=== PATIENT | female | born 1945 | race Caucasian/White ===

== ENCOUNTER → 2016-07-03 | Outpatient (CLI) | payer MEDICARE, BC ==
[~2016-07-03] MED LIST: LOSARTAN PO; OMEPRAZOLE PO; PREMARIN PO; VENL150C PO
--- NOTE | 2016-07-03 17:51 | RADRPT ---
PROCEDURE: Left knee radiographs. CLINICAL INDICATION: Left knee pain. TECHNIQUE: Four views. Weight bearing. Frontal, lateral, oblique, and patellar view. COMPARISON: 12/10/2014. FINDINGS: There is no fracture or dislocation. The soft tissues are normal. There are degenerative changes with osteophytes arising from all 3 joint compartment margins. There is patellofemoral joint compartment narrowing, subarticular sclerosis, and deformity. There is no lytic or blastic lesion. There is no radiopaque foreign body. IMPRESSION: 1. 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 RPTAT: QQ .Laz Klein MD, MD Date Time Electronically viewed and signed by .Laz Klein MD, on 07/03/2016 17:50 .R/
== END | disposition home or self-care (01) ==
LOC: HKI 13:58
PROVIDERS: ATTEND Orthopaedic Surgery
DX: M25.561 Pain in right knee (principal); Z96.651 Presence of right artificial knee joint; M17.12 Unilateral primary osteoarthritis, left knee; M25.562 Pain in left knee
CPT/HCPCS: 73564; G0463

== ENCOUNTER → 2016-07-10 | Outpatient (CLI) | payer MEDICARE, BC ==
--- NOTE | 2016-07-10 17:00 | RADRPT ---
PROCEDURE: Three-phase bone scan study CLINICAL INDICATION: 70 -year-old patient with right knee pain, status post right knee replacement . TECHNIQUE: Following the intravenous injection of 22.4 mCi of Tc-99m MDP, a three-phase bone scan study of the knees bilaterally was obtained. COMPARISON: No prior bone scan studies. X-ray of the left knee dated July 03, 2016, x-ray of the right knee dated January 29, 2016. FINDINGS: Blood flow phase of the study demonstrates symmetrical distribution of activity in the knees bilater ally. Blood pooling images reveal symmetrical distribution of uptake in both knees. Delayed images of both knees demonstrate evidence of a right knee replacement with minimally increas ed activity surrounding the prosthesis, which is likely related to prior surgery. Increased uptake is seen in the left knee, in the patellofemoral joint region, which is likely relat ed to degenerative process. IMPRESSION: 1. Evidence of the right knee replacement with likely postsurgical changes; prosthesis loosening ca nnot be entirely excluded. 2. Likely degenerative changes of the left knee. 3. No other abnormal areas of increased uptake in the obtained limited views of both knees. RPTAT: HH .Chelsea Bustillos MD, Date Time Electronically viewed and signed by .Chelsea Bustillos MD, on 07/10/2016 16:59 .L/
== END | disposition home or self-care (01) ==
LOC: NUC 11:14
PROVIDERS: ATTEND Orthopaedic Surgery
DX: T84.84XA Pain due to internal orthopedic prosthetic devices, implants and grafts, initial encounter (principal); Y83.8 Other surgical procedures as the cause of abnormal reaction of the patient, or of later complication, without mention of misadventure at the time of the procedure; M25.561 Pain in right knee; Z96.651 Presence of right artificial knee joint
CPT/HCPCS: 78315; A9503

== ENCOUNTER → 2016-08-10 | Outpatient (CLI) | payer MEDICARE, BC | END | disposition home or self-care (01) | LOC: HKI 11:03 | PROVIDERS: ATTEND Orthopaedic Surgery | DX: M25.562 Pain in left knee (principal); M17.12 Unilateral primary osteoarthritis, left knee; Z96.651 Presence of right artificial knee joint | CPT/HCPCS: 20610; G0463; J1030 ==